=== PATIENT | male | born 1980 ===

== ENCOUNTER 2020-06-08 10:26 | Outpatient (REF) | payer MEDICAID, SELFPAY ==
[2020-06-12 03:51] LABS: SARS-CoV-2 RNA Undetected (Undetected); SARS-CoV-2 Specimen Source Nasal
== END 2020-06-08 10:46 ==
LOC: NCHCN 10:26
PROVIDERS: Visit Provider Internal Medicine
DX: Z20.828 Contact with and (suspected) exposure to other viral communicable diseases (principal)
CPT/HCPCS: U0003